=== PATIENT | male | born 1955 | race Caucasian/White ===

== ENCOUNTER → 2023-04-15 | Outpatient (CLI) | payer OTHER ==
--- NOTE | 2023-04-16 07:41 | CA ---
Transthoracic Echo Report Name: [place] Moreno Age: 67 Gender: M : 1955 Exam Date: 04/15/2023 14:13 Exam Location: [facility] Ht (in): 71 Wt (lb): 344 Ordering Physician: [facility] Attending/Referring Phys: [facility] Social Security Assessor Meenakshi Pete RDCS Procedure CPT: Indications: dyspnea Cardiac Hx: Technical Quality: Technically difficult study Contrast 1: Definity Total Dose (mL): 2 Contrast 2: Total Dose (mL): MEASUREMENTS (Male / Female) Normal Values 2D ECHO LV Diastolic Diameter PLAX 4.8 cm 4.2 - 5.9 / 3.9 - 5.3 cm LV Systolic Diameter PLAX 3.5 cm IVS Diastolic Thickness 1.6 cm 0.6 - 1.0 / 0.6 - 0.9 cm LVPW Diastolic Thickness 1.6 cm 0.6 - 1.0 / 0.6 - 0.9 cm LV Relative Wall Thickness 0.7 RV Internal Dim ED PLAX 3.6 cm LA Systolic Diameter LX 4.0 cm 3.0 - 4.0 / 2.7 - 3.8 cm LV Diastolic Volume MOD BP 41.8 cm??? 67 - 155 / 56 - 104 cm??? LV Systolic Volume MOD BP 14.8 cm??? 22 - 58 / 19 - 49 cm??? LV Ejection Fraction MOD BP 64.7 % >= 55 % LV Cardiac Index MOD BP 658.5 cm???/min???m??? LV Diastolic Volume MOD 4C 46.3 cm??? LV Systolic Volume MOD 4C 16.3 cm??? LV Ejection Fraction MOD 4C 64.8 % LV Cardiac Index MOD 4C 730.4 cm???/min???m??? LV Diastolic Length 4C 7.4 cm LV Systolic Length 4C 6.4 cm LV Diastolic Volume MOD 2C 37.9 cm??? LV Systolic Volume MOD 2C 13.8 cm??? LV Ejection Fraction MOD 2C 63.6 % LV Cardiac Index MOD 2C 586.9 cm???/min???m??? LV Diastolic Length 2C 7.3 cm LV Systolic Length 2C 6.1 cm LA Volume 72.1 cm??? 18 - 58 / 22 - 52 cm??? LA Volume Index 25.1 cm???/m??? 16 - 28 cm???/m??? M-MODE Aortic Root Diameter MM 3.7 cm MV E Point Septal Separation 1.1 cm AV Cusp Separation MM 2.5 cm DOPPLER AV Peak Velocity 112.0 cm/s AV Peak Gradient 5.0 mmHg MV Area PHT 4.7 cm??? Mitral E Point Velocity 105.6 cm/s Mitral A Point Velocity 83.0 cm/s Mitral E to A Ratio 1.3 MV Deceleration Time 162.6 ms MV E' Velocity 7.2 cm/s Mitral E to MV E' Ratio 14.7 FINDINGS Left Ventricle Left ventricular ejection fraction is estimated at 55-60 %. Left ventricular cavity size normal. Moderate concentric left ventricular hypertrophy. Right Ventricle Mild right ventricular dilatation. Unable to estimate the right ventricular systolic pressure. Right Atrium Normal right atrial size. Left Atrium Moderately increased left atrial volume. Mildly increased left atrial area. Mitral Valve Structurally normal mitral valve. No mitral stenosis, regurgitation or prolapse. Aortic Valve Aortic valve not well visualized. No aortic valve stenosis or regurgitation. Tricuspid Valve Tricuspid valve not well visualized. No tricuspid stenosis, regurgitation or prolapse. Pulmonic Valve Pulmonic valve not well visualized. No pulmonic regurgitation. Pericardium No pericardial effusion. Aorta Normal size aortic root and proximal ascending aorta. CONCLUSIONS Technically difficult study. Definity ECHO contrast used for improved visualization of the endocardial borders (inadequate visualization of two or more contiguous segments). Normal left ventricle size and systolic function Very limited Doppler study Previewed by: Dr. Veronica Del Cid MD (Electronically Signed) Final Date: 16 April 2023 07:40
== END | disposition home or self-care (01) ==
LOC: RADECHMAIN 13:52
DX: R06.00 Dyspnea, unspecified (principal)
CPT/HCPCS: 93306; Q9957